=== PATIENT | male | born 1950 | race Caucasian/White ===

== ENCOUNTER → 2019-06-11 12:39 | Outpatient (CLI) | payer MEDICARE, OTHER, SELFPAY ==
--- NOTE | 2019-06-11 12:43 | DI.RAD.S_ITS ---
PROCEDURE: XR FINGER LT MIN 2V INDICATIONS: r/o foreign body TECHNIQUE: AP hand, 2 views of the second finger(s) acquired. COMPARISON: None. FINDINGS: Bones: No fractures or dislocations. No suspicious bony lesions. There is severe narrowing of the second DIP joint with [id number] contact, subchondral sclerosis and cystic change. Soft tissues: First digit soft tissue swelling. No radiopaque foreign body seen. IMPRESSION: 1. 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 Recommend clinical correlation. 2. No radiopaque soft tissue foreign bodies. Dictated by: Dominick MCCAIN Interpreted: Karen Xoing MD on 06/11/2019 at 15:54 Approved by: Greg Woods M.D. on 06/15/2019 at 9:31
== END ==
PROVIDERS: Visit Provider Nurse Practitioner
DX: M79.5 Residual foreign body in soft tissue (principal); M19.042 Primary osteoarthritis, left hand
CPT/HCPCS: 73140